=== PATIENT | female | born 1960 | race Hispanic/Latino ===

== ENCOUNTER → 2017-11-30 | Outpatient (CLI) | payer OTHER ==
[~2017-11-30] MED LIST: ASPIRIN81 MG PO; ENALAPRIL MALEA20 MG PO; GLYBURIDE-METF1 EAC1 PO; NOVOLIN R100 UNIT/1 SQ; PAROXETINE HCL20 MG PO; SIMVASTATIN10 MG PO
--- NOTE | 2017-11-30 13:07 | Diagnostic Imaging Report ---
HISTORY: Chronic viral hepatitis B without delta agent and without coma TECHNIQUE: Selected images from limited abdominal ultrasound provided for INTERPRETATION: COMPARISON: Abdominal ultrasound 03/16/2017. FINDINGS: Pancreas: Visualized portions are mildly increased in echotexture without mass or ductal dilatation. Liver: Measures 20.1 cm in sagittal plane (previously, 16.7 cm). The echotexture is heterogeneous and increased. No mass in the visualized portions. Portal Vein: Measures 1.3 cm. Proper directional flow on spectral Doppler interrogation. Biliary Tree: No intrahepatic biliary ductal dilatation Gallbladder: No evidence of gallstone or gallbladder wall thickening. CBD: 0.4 cm. Right Kidney: 11.8 cm in greatest length. The echotexture is normal. There is no evidence for mass. There is no collecting system dilatation or evidence of obstruction. No renal calculi evident. No adjacent free fluid or fluid collections. Visualized IVC and aorta are normal. There is no free fluid. IMPRESSION: Increased hepatic echotexture suggestive of steatosis. No hepatic mass. Hepatomegaly. Increased pancreas echotexture suggestive of lipomatosis. Signed by: Dr. Ashley Moore MD on 11/30/2017 1:04 PM
== END ==
LOC: US 10:39
PROVIDERS: ATTEND Internal Medicine Gastroenterology
DX: B18.1 Chronic viral hepatitis B without delta-agent (principal)
CPT/HCPCS: 76705

== ENCOUNTER 2019-09-19 13:09 | Emergency (ER) | payer SELFPAY ==
[~2019-09-19] VITALS: Ht 157.5 cm; Wt 99.8 kg
[2019-09-19 15:23] LABS: BASOPHILS % 0.4 % (0.0-1.0); EOSINOPHILS # (AUTO) 0.1 (0.0-0.4); EOSINOPHILS % 1.3 % (0.0-6.0); HEMATOCRIT 38.1 % (34.2-44.1); HEMOGLOBIN 11.6 g/dL (12.0-16.0); LYMPHOCYTES # (AUTO) 2.1 (1.0-3.2); LYMPHOCYTES % 20.7 % (18.0-39.1); MEAN CORPUSCULAR HEMOGLOBIN 24.8 pg (28-32); MEAN CORPUSCULAR HGB CONC 30.4 g/dL (31-35); MEAN CORPUSCULAR VOLUME 81.6 fL (81-99); NEUTROPHILS # (AUTO) 6.6 (2.1-6.9); PLATELET COUNT 341 x10e3/uL (140-360); RED BLOOD COUNT 4.67 x10e6/uL (3.6-5.1); RED CELL DISTRIBUTION WIDTH 16.4 % (11.7-14.4)
[2019-09-19 15:43] LABS: ALANINE AMINOTRANSFERASE 17 IU/L (0-55); ALBUMIN 3.5 g/dL (3.5-5.0); ALBUMIN/GLOBULIN RATIO 0.9 (0.8-2.0); ALKALINE PHOSPHATASE 52 IU/L (40-150); ANION GAP 15.2 mmol/L (8-16); BLOOD UREA NITROGEN 14 mg/dL (7-26); BUN/CREATININE RATIO 17 (6-25); CALCIUM 8.6 mg/dL (8.4-10.2); CARBON DIOXIDE 22 mmol/L (22-29); CHLORIDE 103 mmol/L (98-107); CREATININE, SERUM 0.81 mg/dL (0.57-1.11); EST GLOMERULAR FILTRATION RATE > 60 ML/MIN (60-); GLUCOSE 330 mg/dL (74-118); POTASSIUM 4.2 mmol/L (3.5-5.1); SODIUM 136 mmol/L (136-145)
--- NOTE | 2019-09-19 16:25 | Emergency Department Note ---
History of Present Illnes History of Present Illness Chief Complaint: General Medicine Complaints History of Present Illness This is a 59 year old female arrived to the ED with bilateral mastoid tenderness. Patient states she has chronic ear infections and has been on antibiotics for 30 days with minimal relief. Patient denies any difficulty swallowing, denies any shortness of breath, denies any hearing loss. Historian: Patient Arrival Mode: Car Onset (how long ago): day(s) Severity: moderate Onset quality: gradual Duration (how long): day(s) Timing of current episode: constant Progression: worsening Chronicity: recurrent Past Medical/Family History Physician Review I have reviewed the patient's past medical and family history. Any updates have been documented here. Past Medical History Recent Fever: No Clinical Suspicion of Infectio: No New/Unexplained Change in Ment: No Past Medical History: Hypertension, Diabetes, Depression, GERD, Hyperlipedemia Past Surgical History: Appendectomy Other Surgery: PANCREATI CYST REMOVAL Review of Systems Review of Systems Constitutional: Reports as per HPI EENTM: Reports no symptoms, Reports ear pain, Reports other (mastoid tenderness) Cardiovascular: Reports no symptoms Respiratory: Reports no symptoms Gastrointestinal: Reports no symptoms Genitourinary: Reports no symptoms Musculoskeletal: Reports no symptoms Integumentary: Reports no symptoms Neurological: Reports no symptoms Psychological: Reports no symptoms Endocrine: Reports no symptoms Hematological/Lymphatic: Reports no symptoms Physical Exam Related Data Allergies: Coded Allergies: iodine (Verified Allergy, Mild, HIVES, 09/22/14) Triage Vital Signs Vital Signs Date Time Temp Pulse Resp B/P (MAP) Pulse Ox O2 Delivery O2 Flow Rate FiO2 09/19/19 13:24 98.4 89 16 147/82 100 Vital signs reviewed: Yes Physical Exam CONSTITUTIONAL Constitutional: Present well-developed, Present well-nourished HENT HENT: Present normocephalic, Present atraumatic, Present oropharynx clear/moist, Present nose normal HENT L/R: Present left TM normal, Present right TM normal, Present left canal normal, Present right canal normal, Present left ext ear normal, Present right ext ear normal, Present other (marked tender firm lymphadenopathy noted. Over bilateral posterior SCM) EYES Eyes: Reports PERRL, Reports conjunctivae normal NECK Neck: Present ROM normal PULMONARY Pulmonary: Present effort normal, Present breath sounds normal CARDIOVASCULAR Cardiovascular: Present regular rhythm, Present heart sounds normal, Present capillary refill normal, Present normal rate GASTROINTESTINAL Abdominal: Present soft, Present nontender, Present bowel sounds normal GENITOURINARY Genitourinary: Present exam deferred SKIN Skin: Present warm, Present dry MUSCULOSKELETAL Musculoskeletal: Present ROM normal NEUROLOGICAL Neurological: Present alert, Present oriented x 3, Present no gross motor or sensory deficits PSYCHOLOGICAL Psychological: Present mood/affect normal, Present judgement normal Results Laboratory Result Diagram: 09/19/19 1443 09/19/19 1443 Laboratory Laboratory Tests Test 09/19/19 14:43 White Blood Count 9.89 x10e3/uL (4.8-10.8) Red Blood Count 4.67 x10e6/uL (3.6-5.1) Hemoglobin 11.6 g/dL (12.0-16.0) Hematocrit 38.1 % (34.2-44.1) Mean Corpuscular Volume 81.6 fL (81-99) Mean Corpuscular Hemoglobin 24.8 pg (28-32) Mean Corpuscular Hemoglobin Concent 30.4 g/dL (31-35) Red Cell Distribution Width 16.4 % (11.7-14.4) Platelet Count 341 x10e3/uL (140-360) Neutrophils (%) (Auto) 67.0 % (38.7-80.0) Lymphocytes (%) (Auto) 20.7 % (18.0-39.1) Monocytes (%) (Auto) 10.0 % (4.4-11.3) Eosinophils (%) (Auto) 1.3 % (0.0-6.0) Basophils (%) (Auto) 0.4 % (0.0-1.0) Neutrophils # (Auto) 6.6 (2.1-6.9) Lymphocytes # (Auto) 2.1 (1.0-3.2) Monocytes # (Auto) 1.0 (0.2-0.8) Eosinophils # (Auto) 0.1 (0.0-0.4) Basophils # (Auto) 0.0 (0.0-0.1) Absolute Immature Granulocyte (auto 0.06 x10e3/uL (0-0.1) Sodium Level 136 mmol/L (136-145) Potassium Level 4.2 mmol/L (3.5-5.1) Chloride Level 103 mmol/L (98-107) Carbon Dioxide Level 22 mmol/L (22-29) Anion Gap 15.2 mmol/L (8-16) Blood Urea Nitrogen 14 mg/dL (7-26) Creatinine 0.81 mg/dL (0.57-1.11) Estimat Glomerular Filtration Rate > 60 ML/MIN (60-) BUN/Creatinine Ratio 17 (6-25) Glucose Level 330 mg/dL (74-118) Calcium Level 8.6 mg/dL (8.4-10.2) Total Bilirubin 0.3 mg/dL (0.2-1.2) Aspartate Amino Transf (AST/SGOT) 19 IU/L (5-34) Alanine Aminotransferase (ALT/SGPT) 17 IU/L (0-55) Alkaline Phosphatase 52 IU/L (40-150) Total Protein 7.2 g/dL (6.5-8.1) Albumin 3.5 g/dL (3.5-5.0) Globulin 3.7 g/dL (2.3-3.5) Albumin/Globulin Ratio 0.9 (0.8-2.0) Lab results reviewed: Yes Imaging Imaging results reviewed: Yes Assessment & Plan Medical Decision Making MDM 59-year-old female arrived to the ED with bilateral mastoid tenderness, lymphadenopathy noted on exam. Laboratory done in the ED to ensure no leukocytosis. Patient signed out to Dr. Flores to follow-up CT maxillofacial to assess for abscess. Assessment & Plan Final Impression: (1) Lymphadenopathy (2) Mastoiditis (3) Mastoid pain Depart Disposition: HOME, SELF-CARE Last Vital Signs Date Time Temp Pulse Resp B/P (MAP) Pulse Ox O2 Delivery O2 Flow Rate FiO2 09/19/19 13:24 98.4 89 16 147/82 100 Home Meds Reported Medications Aspirin (ASPIRIN) 81 Mg Tab.chew, 81 MG PO DAILY 09/22/14 Paroxetine Hcl (PAROXETINE HCL) 20 Mg Tablet, 20 MG PO DAILY, #30 TAB 09/22/14 Simvastatin (SIMVASTATIN) 10 Mg Tablet, 10 MG PO DAILY, TAB 09/22/14 Enalapril Maleate (ENALAPRIL MALEATE) 20 Mg Tablet, 10 MG PO BID 09/22/14 Glyburide/Metformin Hcl (GLYBURIDE-METFORMIN 5-500 MG) 1 Each Tablet, 2 TAB PO BID 09/22/14 Insulin Regular, Human (NOVOLIN R) 100 Unit/1 Ml Vial, 35 UNIT SQ BID 09/22/14 BLUE ALEXANDRE DO Sep 19, 2019 16:25
[2019-09-19] MEDS ORDERED: DIPHENHYDRAMINE HCL INJ 50 MG/ML VIAL IV ONE (17:30)
[2019-09-19] MEDS ORDERED: PREDNISONE 20 MG TAB ONE ×2 (17:40→17:45)
[2019-09-19] MEDS ORDERED: SODIUM CHLORIDE 0.9% 50ML 50 ML ONE (18:30)
[2019-09-19] MEDS ORDERED: IOPAMIDOL 370 MG/ML 200 ML INFUS..BTL INJ ONE (18:30)
--- NOTE | 2019-09-19 20:43 | Diagnostic Imaging Report ---
History:Swelling around mastoids bilaterally Comparison studies: None Technique: Axial images were obtained through the facial region. Coronal and sagittal images reconstructed from the axial data. Intravenous contrast: 100 cc of Omnipaque 300. Dose modulation, iterative reconstruction, and/or weight based adjustment of the mA/kV was utilized to reduce the radiation dose to as low as reasonably achievable. Findings: Soft tissues: Mild fatty stranding and skin thickening at the bilateral external auditory canals, which are patent. Clear mastoid air cells and middle ear Bones: No fractures or bony abnormalities. Orbits: Globes: Intact. Extra or intraconal abnormalities: None. Paranasal sinuses: Clear IMPRESSION: 1. Skin thickening with mild surrounding fatty stranding at the bilateral external auditory canals, suggestive of otitis externa. No drainable fluid collection. The mastoid air cells are clear. Signed by: DR Topher Kelsey M.D. on 09/19/2019 8:40 PM
[2019-09-19 23:01] VITALS: BP 138/76
[2019-09-20] MEDS ORDERED: PREDNISONE 20 MG TAB PO SCH (09:00)
== END 2019-09-19 21:30 | disposition home or self-care (01) ==
LOC: ER 13:09
DX: H92.03 Otalgia, bilateral (principal); H70.93 Unspecified mastoiditis, bilateral; R59.1 Generalized enlarged lymph nodes; E11.65 Type 2 diabetes mellitus with hyperglycemia; I10 Essential (primary) hypertension; E78.5 Hyperlipidemia, unspecified; K21.9 Gastro-esophageal reflux disease without esophagitis; F32.9 Major depressive disorder, single episode, unspecified
CPT/HCPCS: 36415; 70487; 80053; 85025; 99284; J1200; J7512; Q9967